=== PATIENT | female | born 1970 | race Caucasian/White ===

== ENCOUNTER 2017-09-03 03:15 | Inpatient (IN) | payer OTHER ==
[2017-09-03] MEDS ORDERED: IPRATROPIUM BROM 0.5MG/2.5ML ONE (03:32)
[2017-09-03] MEDS ORDERED: ALBUTEROL 2.5 MG/3 ML NEB SOL ONE ×2 (03:32→04:17)
--- NOTE | 2017-09-03 04:15 | ER ---
Nurse's Notes [facility] Name: Fara Pérez Age: 47 yrs Sex: Female : 1970 Arrival Date: 09/03/2017 Time: 03:18 Bed 13 Private MD: Diagnosis: Asthma;Tobacco use;Tobacco abuse counseling;Hypokalemia;Essential (primary) hypertension;Elevated white blood cell count Presentation: 09/03 03:27 Presenting complaint: Patient states: she has hx of asthma and is having an bb exacerbation with difficulty breathing, wheezing, chest tightness, she used her inhaler and did a breathing treatment but it is not helping. Transition of care: patient was not received from another setting of care. Onset of symptoms was September 03, 2017. Risk Assessment: Do you want to hurt yourself or someone else? Patient reports no desire to harm self or others. Initial Sepsis Screen: Does the patient meet any 2 criteria? No. Patient's initial sepsis screen is negative. Does the patient have a suspected source of infection? No. Patient's initial sepsis screen is negative. Care prior to arrival: Medication(s) given: Albuterol Neb and inhaler. 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 - Social history:: Smoking status: Patient uses tobacco products, smokes one pack cigarettes per day. Patient uses alcohol, only on a social basis. Patient/guardian denies using street drugs. - Ebola Screening: : No symptoms or risks identified at this time. - Family history:: not pertinent. Screenin:54 Abuse screen: Denies threats or abuse. Denies injuries from another. Nutritional ao screening: No deficits noted. Tuberculosis screening: No symptoms or risk factors identified. Fall Risk None identified. Assessment: 03:52 General: Appears in no apparent distress. uncomfortable, Behavior is calm, cooperative, ao appropriate for age. Pain: Denies pain. Neuro: Level of Consciousness is awake, alert, obeys commands, Oriented to person, place, time, situation, Appropriate for age Moves all extremities. Speech is normal, Facial symmetry appears normal. Cardiovascular: Capillary refill < 3 seconds Patient's skin is warm and dry. Respiratory: Airway is patent Trachea midline Respiratory effort is labored, Respiratory pattern is symmetrical. Respiratory: Reports shortness of breath cough that is non-productive. GI: Abdomen is non-distended. : No signs and/or symptoms were reported regarding the genitourinary system. EENT: No signs and/or symptoms were reported regarding the EENT system. Derm: Skin temperature is warm. Musculoskeletal: No signs and/or symptoms reported regarding the musculoskeletal system. 04:50 Reassessment: Patient appears in no apparent distress at this time. Patient and/or ao family updated on plan of care and expected duration. Pain level reassessed. Patient is alert, oriented x 3, equal unlabored respirations, skin warm/dry/pink. 05:50 Reassessment: Patient appears in no apparent distress at this time. Patient and/or ao family updated on plan of care and expected duration. Pain level reassessed. Patient is alert, oriented x 3, equal unlabored respirations, skin warm/dry/pink. 06:30 Reassessment: Patient admitted to [facility]. Report called to ELIS kahn. ao 06:40 Reassessment: Patient was taken to her room while Dr Bates put more orders to ao medicate patient. Dr Bates was notified and stated that orders had been put into [facility] as well. 06:52 Reassessment: Called [facility] notified that Dr Bates wants this patient to get Lovenox ao and Aspirin ASP. Vital Signs: 03:31 BP 158 / 90; Pulse 97; Resp 20 S; Pulse Ox 95% on R/A; Weight 86.18 kg (R); Height 4 bb ft. 10 in. (147.32 cm) (R); Pain 0/10; 04:11 Temp 98.7(O); bb 04:50 BP 146 / 89; Pulse 110; Resp 18; Pulse Ox 99% on R/A; Pain 0/10; ao 03:31 Body Mass Index 39.71 (86.18 kg, 147.32 cm) bb ED Course: 03:18 Patient arrived in ED. es 03:29 Triage completed. bb 03:30 Inserted saline lock: 22 gauge in right antecubital area, using aseptic technique. bs1 Blood collected. 03:31 Arm band placed on Patient placed in an exam room, on a stretcher, on pulse oximetry. bb Family accompanied patient. 03:32 Aayush Shane, RN is Primary Nurse. ao 03:55 No provider procedures requiring assistance completed. ao 03:56 Patient has correct armband on for positive identification. Pulse ox on. NIBP on. ao 03:59 Michael Bates MD is Attending Physician. thompson 04:14 Roland Gonzalez MD is Hospitalizing Provider. thompson 04:28 X-ray completed. Portable x-ray completed in exam room. Patient tolerated procedure la2 well. 04:29 XRAY Chest (1 view) In Process Unspecified. EDMS 05:05 Inserted saline lock: 24 gauge in left hand, using aseptic technique. ao 06:29 Patient admitted, IV remains in place. ao Administered Medications: 03:32 Drug: Albuterol - atroVENT (3:1) (2.5 mg - 0.5 mg) 3 ml Route: Nebulizer; bs1 06:28 Follow up: Response: No adverse reaction ao 04:43 Drug: Decadron - Dexamethasone 10 mg Route: IVP; Site: left antecubital; ao 06:27 Follow up: Response: No adverse reaction ao 04:44 Drug: SOLU-Medrol 125 mg Route: IVP; Site: right antecubital; ao 06:26 Follow up: Response: No adverse reaction ao 04:44 Drug: Albuterol 5 mg Route: Inhalation; ao 06:26 Follow up: Response: No adverse reaction ao 04:44 Drug: NS 0.9% 1000 ml Route: IV; Rate: 1 bolus; Site: left antecubital; ao 06:26 Follow up: IV Status: Completed infusion; IV Intake: 1000ml ao 05:04 Drug: Rocephin - (cefTRIAXone) 1 grams Route: IVPB; Infused Over: 30 mins; Site: right ao antecubital; 06:26 Follow up: IV Status: Completed infusion; IV Intake: 10ml ao 05:04 Drug: Zithromax 500 mg Route: IVPB; Infused Over: 1 hrs; Site: left antecubital; ao 06:26 Follow up: IV Status: Infusion continued upon admission ao 06:10 Drug: NS 0.9% 1000 ml Route: IV; Rate: 125 ml/hr; Site: right antecubital; ao 06:27 Follow up: IV Status: Infusion continued upon admission ao 06:34 Not Given (PT admitted. Dr Bates stated that it would be put in [facility]): Potassium ao Effervescent Tablet 25 mEq PO once; dissolve in 4 ounces of water or juice 06:38 Not Given (Pt admitted. Order put in [facility] by Dr Bates): Lopressor (metoprolol ao TARTRATE) 50 mg PO once 06:39 Not Given (Pt admitted . Order tranfered to [facility] by Dr Solis): Lovenox 1 mg/kg ao Sub-Q once 06:40 Not Given (Pt admitted. Ordered put in [facility] by Dr Bates): Aspirin Chewable ao Tablet 324 mg PO once; 81 mg tablets x 4 Intake: 06:26 IV: 10ml; Total: 10ml. ao 06:26 IV: 1000ml; Total: 1010ml. ao Outcome: 04:15 Decision to Hospitalize by Provider. thompson 06:28 Admitted to Tele accompanied by tech, via wheelchair, room 415, with chart, Report ao called to ELIS Kahn 06:28 Condition: stable 06:28 Instructed on the need for admit. 06:31 Patient left the ED. ao Signatures: Dispatcher [employer] Michael Torres MD MD cha Salyer, Edna es Ballard, Brenda RN RN Aayush Zhong RN RN Yoanna Sequeira Brittany, RN RN bs1
--- NOTE | 2017-09-03 04:16 | EDPHYS ---
Physician Documentation [facility] Name: Fara Pérez Age: 47 yrs Sex: Female : 1970 Arrival Date: 09/03/2017 Time: 03:18 Bed 13 Private MD: ED Physician Michael Bates HPI: 09/03 04:11 This 47 yrs old Female presents to ER via Ambulatory with complaints of thompson Asthma Exacerbation. 04:11 The patient presents to the emergency department with wheezing, Current therapy:. thompson Onset: The symptoms/episode began/occurred 2 day(s) ago. Modifying factors: The symptoms are alleviated by nothing, the symptoms are aggravated by exertion. Associated signs and symptoms: Pertinent positives: chest pain, nausea. Severity of symptoms: At their worst the symptoms were mild in the emergency department the symptoms are unchanged. The patient has experienced similar episodes in the past, multiple times. 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 - Social history:: Smoking status: Patient uses tobacco products, smokes one pack cigarettes per day. Patient uses alcohol, only on a social basis. Patient/guardian denies using street drugs. - Ebola Screening: : No symptoms or risks identified at this time. - Family history:: not pertinent. ROS: 04:11 Constitutional: Negative for fever, chills, and weight loss, Eyes: Negative for injury, thompson pain, redness, and discharge, ENT: Negative for injury, pain, and discharge, Neck: Negative for injury, pain, and swelling, Cardiovascular: Negative for chest pain, palpitations, and edema, Abdomen/GI: Negative for abdominal pain, nausea, vomiting, diarrhea, and constipation, Back: Negative for injury and pain, : Negative for injury, bleeding, discharge, and swelling, MS/Extremity: Negative for injury and deformity, Skin: Negative for injury, rash, and discoloration, Neuro: Negative for headache, weakness, numbness, tingling, and seizure, Psych: Negative for depression, anxiety, suicide ideation, homicidal ideation, and hallucinations, Allergy/Immunology: Negative for hives, rash, and allergies, Endocrine: Negative for neck swelling, polydipsia, polyuria, polyphagia, and marked weight changes, Hematologic/Lymphatic: Negative for swollen nodes, abnormal bleeding, and unusual bruising. 04:11 Respiratory: Positive for cough, shortness of breath, wheezing, inspiratory, expiratory. Exam: 04:11 Constitutional: This is a well developed, well nourished patient who is awake, alert, thompson and in no acute distress. Head/Face: Normocephalic, atraumatic. Eyes: Pupils equal round and reactive to light, extra-ocular motions intact. Lids and lashes normal. Conjunctiva and sclera are non-icteric and not injected. Cornea within normal limits. Periorbital areas with no swelling, redness, or edema. ENT: Nares patent. No nasal discharge, no septal abnormalities noted. Tympanic membranes are normal and external auditory canals are clear. Oropharynx with no redness, swelling, or masses, exudates, or evidence of obstruction, uvula midline. Mucous membranes moist. Neck: Trachea midline, no thyromegaly or masses palpated, and no cervical lymphadenopathy. Supple, full range of motion without nuchal rigidity, or vertebral point tenderness. No Meningismus. Chest/axilla: Normal chest wall appearance and motion. Nontender with no deformity. No lesions are appreciated. Cardiovascular: Regular rate and rhythm with a normal S1 and S2. No gallops, murmurs, or rubs. Normal PMI, no JVD. No pulse deficits. Abdomen/GI: Soft, non-tender, with normal bowel sounds. No distension or tympany. No guarding or rebound. No evidence of tenderness throughout. Back: No spinal tenderness. No costovertebral tenderness. Full range of motion. Female : Normal external genitalia. Skin: Warm, dry with normal turgor. Normal color with no rashes, no lesions, and no evidence of cellulitis. MS/ Extremity: Pulses equal, no cyanosis. Neurovascular intact. Full, normal range of motion. Neuro: Awake and alert, GCS 15, oriented to person, place, time, and situation. Cranial nerves II-XII grossly intact. Motor strength 5/5 in all extremities. Sensory grossly intact. Cerebellar exam normal. Normal gait. Psych: Awake, alert, with orientation to person, place and time. Behavior, mood, and affect are within normal limits. 04:11 Respiratory: mild respiratory distress is noted, Respirations: normal, Breath sounds: Respiratory rate: 20 Vital Signs: 03:31 BP 158 / 90; Pulse 97; Resp 20 S; Pulse Ox 95% on R/A; Weight 86.18 kg (R); Height 4 bb ft. 10 in. (147.32 cm) (R); Pain 0/10; 04:11 Temp 98.7(O); bb 04:50 BP 146 / 89; Pulse 110; Resp 18; Pulse Ox 99% on R/A; Pain 0/10; ao 03:31 Body Mass Index 39.71 (86.18 kg, 147.32 cm) bb MDM: 03:59 Patient medically screened. [facility] 04:14 Data reviewed: vital signs, nurses notes, lab test result(s), EKG, radiologic studies, thompson plain films. 09/03 04:11 Order name: Basic Metabolic Panel [facility] 09/03 04:11 Order name: BNP; Complete Time: 06:26 [facility] 09/03 04:11 Order name: CBC with Diff; Complete Time: 06:26 [facility] 09/03 04:11 Order name: Ckmb; Complete Time: 06:26 [facility] 09/03 04:11 Order name: CPK; Complete Time: 06:26 [facility] 09/03 04:11 Order name: LFT's; Complete Time: 06:26 [facility] 09/03 04:11 Order name: Magnesium; Complete Time: 06:26 [facility] 09/03 04:11 Order name: PT-INR; Complete Time: 06:26 [facility] 09/03 04:11 Order name: Ptt, Activated; Complete Time: 06:26 [facility] 09/03 04:11 Order name: Troponin (emerg Dept Use Only); Complete Time: 06:26 [facility] 09/03 04:11 Order name: XRAY Chest (1 view) [facility] 09/03 04:11 Order name: Blood Culture Adult (2) [facility] 09/03 04:11 Order name: Basic Metabolic Panel; Complete Time: 06:26 EDMS 09/03 06:30 Order name: Urine Dipstick--Ancillary (enter results) 09/03 04:11 Order name: Urine Test (obtain specimen); Complete Time: 06:27 [facility] 09/03 04:11 Order name: EKG; Complete Time: 04:12 [facility] 09/03 04:11 Order name: Cardiac monitoring; Complete Time: 05:04 [facility] 09/03 06:28 Order name: Echo w/ Doppler [facility] 09/03 04:11 Order name: EKG - Nurse/Tech; Complete Time: 05:04 [facility] 09/03 04:11 Order name: IV Saline Lock; Complete Time: 05:04 [facility] 09/03 04:11 Order name: Labs collected and sent; Complete Time: 05:04 [facility] 09/03 04:11 Order name: O2 Per Protocol; Complete Time: 05:04 [facility] 09/03 04:11 Order name: O2 Sat Monitoring; Complete Time: 05:04 [facility] 09/03 04:11 Order name: Urine Dipstick-Ancillary (obtain specimen); Complete Time: 06:27 [facility] Administered Medications: 03:32 Drug: Albuterol - atroVENT (3:1) (2.5 mg - 0.5 mg) 3 ml Route: Nebulizer; bs1 06:28 Follow up: Response: No adverse reaction ao 04:43 Drug: Decadron - Dexamethasone 10 mg Route: IVP; Site: left antecubital; ao 06:27 Follow up: Response: No adverse reaction ao 04:44 Drug: SOLU-Medrol 125 mg Route: IVP; Site: right antecubital; ao 06:26 Follow up: Response: No adverse reaction ao 04:44 Drug: Albuterol 5 mg Route: Inhalation; ao 06:26 Follow up: Response: No adverse reaction ao 04:44 Drug: NS 0.9% 1000 ml Route: IV; Rate: 1 bolus; Site: left antecubital; ao 06:26 Follow up: IV Status: Completed infusion; IV Intake: 1000ml ao 05:04 Drug: Rocephin - (cefTRIAXone) 1 grams Route: IVPB; Infused Over: 30 mins; Site: right ao antecubital; 06:26 Follow up: IV Status: Completed infusion; IV Intake: 10ml ao 05:04 Drug: Zithromax 500 mg Route: IVPB; Infused Over: 1 hrs; Site: left antecubital; ao 06:26 Follow up: IV Status: Infusion continued upon admission ao 06:10 Drug: NS 0.9% 1000 ml Route: IV; Rate: 125 ml/hr; Site: right antecubital; ao 06:27 Follow up: IV Status: Infusion continued upon admission ao 06:34 Not Given (PT admitted. Dr Bates stated that it would be put in [facility]): Potassium ao Effervescent Tablet 25 mEq PO once; dissolve in 4 ounces of water or juice 06:38 Not Given (Pt admitted. Order put in [facility] by Dr Bates): Lopressor (metoprolol ao TARTRATE) 50 mg PO once 06:39 Not Given (Pt admitted . Order tranfered to [facility] by Dr Solis): Lovenox 1 mg/kg ao Sub-Q once 06:40 Not Given (Pt admitted. Ordered put in [facility] by Dr Bates): Aspirin Chewable ao Tablet 324 mg PO once; 81 mg tablets x 4 Disposition: 09/03/17 04:15 Hospitalization ordered by Roland Goznalez for Observation. Preliminary diagnosis are Asthma, Tobacco use, Tobacco abuse counseling, Hypokalemia, Essential (primary) hypertension, Elevated white blood cell count. - Bed requested for Telemetry/MedSurg (observation). - Status is Observation. ao - Condition is Fair. - Problem is new. - Symptoms have improved. UTI on Admission? No Signatures: Dispatcher [employer] EDMS Jacquelyn Vernon RN RN kl Anderson, Corey, MD MD cha Ballard, Brenda, RN RN bb Ortiz, Alex, RN RN ao Salazar, Brittany, RN RN bs1 Corrections: (The following items were deleted from the chart) 05:46 04:15 Hospitalization Ordered by Roland Gonzalez MD for Observation. Preliminary aminta diagnosis is Asthma; Tobacco use; Tobacco abuse counseling. Bed requested for Telemetry/MedSurg (observation). Status is Observation. Condition is Fair. Problem is new. Symptoms have improved. UTI on Admission? No. thompson 06:30 05:46 09/03/2017 04:15 Hospitalization Ordered by Roland Gonzalez MD for Observation. thompson Preliminary diagnosis is Asthma; Tobacco use; Tobacco abuse counseling. Bed requested for Telemetry/MedSurg (observation). Status is Observation. Condition is Fair. Problem is new. Symptoms have improved. UTI on Admission? No. kl 06:31 06:30 09/03/2017 04:15 Hospitalization Ordered by Roland Gonzalez MD for Observation. ao Preliminary diagnosis is Asthma; Tobacco use; Tobacco abuse counseling; Hypokalemia; Essential (primary) hypertension; Elevated white blood cell count. Bed requested for Telemetry/MedSurg (observation). Status is Observation. Condition is Fair. Problem is new. Symptoms have improved. UTI on Admission? No. thompson
[2017-09-03] MEDS ORDERED: CEFTRIAXONE/SWI 1gm 1 GM/10 ML SYR ONE (04:17)
[2017-09-03] MEDS ORDERED: METHYLPREDNISOLONE 125 MG INJ ONE (04:17)
[2017-09-03] MEDS ORDERED: NA CHLORIDE 0.9% 1,000 ML ONE ×2 (04:17→06:12)
[2017-09-03] MEDS ORDERED: DEXAMETHASONE 10 MG/ML VIAL ONE (04:17)
[2017-09-03] MEDS ORDERED: AZITHROMYCIN 500 MG/250 ML BAG ONE (04:18)
[2017-09-03 04:59] LABS: Absolute Lymphocytes (CBC) 1.7 K/uL (0.7-4.9); Absolute Monocytes 0.9 K/uL (0.1-1.3); Absolute Neutrophil 14.4 K/uL (1.8-8.0); Eosinophils % 0.7 % (0-4.4); Hematocrit 39.3 % (36.0-45.0); Lymphocytes % 9.6 % (15.3-44.8); MCH 30.8 pg (27.0-35.0); MPV 9.1 fL (7.6-11.3); RBC Red Blood Cell Count 4.42 M/uL (3.86-4.86)
[2017-09-03 05:15] LABS: Protime INR 0.95
[2017-09-03 05:18] LABS: Bicarbonate 22 mEq/L (21-31); Glucose Level 156 mg/dL (65-120); Potassium 3.3 mEq/L (3.6-5.0); Sodium Level 136 mEq/L (135-145)
[2017-09-03 05:24] LABS: ALT/SGPT 24 IU/L (10-60); AST/SGOT 21 IU/L (10-42); Albumin 4.3 g/dL (3.2-5.5); Alkaline Phosphatase 65 IU/L (42-121); BUN Blood Urea Nitrogen 19 mg/dL (6-20); Bilirubin Direct < 0.1 mg/dL (0-0.2); Bilirubin Total 0.3 mg/dL (0.3-1.2); Creatine Phosphokinase 131 IU/L (22-269); Magnesium 1.8 mg/dL (1.8-2.5); Protein, Total 7.7 g/dL (6.0-8.3)
[2017-09-03 05:27] LABS: CKMB Creatine Kinase MB 4.4 ng/ml (0.3-4.0)
--- NOTE | 2017-09-03 05:51 | P.HP ---
Certification for Inpatient Patient admitted to: Observation With expected LOS: <2 Midnights Practitioner: I am a practitioner with admitting privileges, knowledge of patient current condition, hospital course, and medical plan of care. Services: Services provided to patient in accordance with Admission requirements found in Title 42 Section 412.3 of the Code of Federal Regulations Patient History Date of Service: 09/03/17 Reason for admission: ashtma exacerbation History of Present Illness: Ms Pérez is a 47 years old woman with history of asthma and hypothyroidism, who start about 2 days ago with progressive SOB associated with productive cough, with yellowish secretions. She denied fever but has had chills. She feels tight and not able to catch her air. Her inhaler was not helping at home. At arrival she was dyspneic. Temp 98.7, O2 sat 95% on RA. Lab work remarkable for leukocytosis 17.3K. CXR shows no obvious infiltrate, awaiting radiologist report. Allergies codeine [Codeine] Allergy (Verified 09/12/11 10:32) Rash Sulfa (Sulfonamide Antibiotics) [Sulfa(Sulfonamide Antibiotics)] Allergy ( Verified 09/12/11 10:32) Nausea/Vomiting hydrocodone [Hydrocodone] Adverse Reaction (Verified 09/12/11 10:32) hallucinate prochlorperazine edisylate [From Compazine] Adverse Reaction (Verified 09/12/11 10:32) muscles tighten prochlorperazine maleate [From Compazine] Adverse Reaction (Verified 09/12/11 10 :32) muscles tighten Hydrocodone-Acet Allergy (Uncoded 12/01/15 03:41) Unknown Home Medications: ALPRAZolam [Xanax*] 0.125 mg PO DAILY PRN 12/01/15 Albuterol Inhaler [Ventolin Inhaler*] 2 puff IH Q6H PRN 12/01/15 Famotidine [Pepcid*] 20 mg PO DAILY 12/01/15 Losartan/Hydrochlorothiazide [Losartan-Hctz 50-12.5 mg Tab] 1 tab PO DAILY 11/30 Tiotropium [Spiriva Handihaler*] 1 klarissa IH DAILY 12/01/15 Albuterol Sulfate [Albuterol Sulfate 0.083% Neb Soln] 2.5 mg IH Q4HP PRN #30 ml 12/02/15 Azithromycin Tab [Zithromax*] 500 mg PO DAILY #7 tab 12/02/15 Ipratropium Neb [Atrovent Neb] 0.5 mg IH Q4HP PRN #30 amp 12/02/15 Methylprednisolone [Medrol dosepack] 4 mg PO DIRECTED #1 harmony 12/02/15 - Past Medical/Surgical History Diabetic: No -: asthma -: hypothyroidism -: hernia repair -: hysterectomy -: cholecystectomy -: lumpectomy (brenda) - Family History Family History: Reviewed- Non-Contributory - Social History Smoking Status: Current every day smoker Counseled patient to stop smoking for: less than 10 minutes Smoking therapy provided: Yes Patient receptive to therapy: No Alcohol use: Yes CD- Drugs: No Caffeine use: Yes Place of Residence: Home Review of Systems 10-point ROS is otherwise unremarkable Physical Examination - Physical Exam General: Alert, Mild distress (due to SOB) HEENT: Atraumatic, PERRLA, Mucous membr. moist/pink, EOMI, Sclerae nonicteric Neck: Supple, 2+ carotid pulse no bruit, No LAD, Without JVD or thyroid abnormality Respiratory: Normal air movement, Expiratory wheezes (bilateral), Rhonchi/ gurgles (bilateral) Cardiovascular: Regular rate/rhythm, Normal S1 S2 Gastrointestinal: Normal bowel sounds, No tenderness Musculoskeletal: No tenderness Integumentary: No rashes Neurological: Normal speech, Normal strength at 5/5 x4 extr, Normal tone, Normal affect Lymphatics: No axilla or inguinal lymphadenopathy Assessment and Plan - Problems (Diagnosis) (1) Acute bronchitis Current Visit: Yes Status: Acute Qualifiers: Bronchitis organism: unspecified organism Qualified Code(s): J20.9 - Acute bronchitis, unspecified (2) Asthma exacerbation Onset Date: 12/02/15 Current Visit: No Status: Acute Qualifiers: Asthma severity: mild Asthma persistence: intermittent Qualified Code(s) : J45.21 - Mild intermittent asthma with (acute) exacerbation - Plan The patient will be admitted to the hospital due to Asthma exacerbation, likely secondary to acute bonchitis. Will order empiric antibiotic treatment, IV steroids and scheduled breathing treatments. - Advance Directives Does patient have a Living Will: No Does patient have a Durable POA for Healthcare: No - Code Status/Comfort Care Code Status Assessed: Yes Code Status: Full Code
[2017-09-03] MEDS ORDERED: NA CHLORIDE 0.9% 1,000 ML IV SCH (06:43)
[2017-09-03] MEDS: METHYLPREDNISOLONE 40 MG INJ IV SCH ×3 (06:43→17:52)
[2017-09-03] MEDS ORDERED: ACETAMINOPHEN 500 MG TAB PO PRN (06:43)
[2017-09-03] MEDS ORDERED: ONDANSETRON 4 MG/2 ML VIAL IV PRN (06:43)
[2017-09-03 06:45] VITALS: BMI 39.6
[2017-09-03] MEDS ORDERED: ENOXAPARIN 100 MG/ML SYR SQ SCH (07:00)
[2017-09-03] MEDS: ENOXAPARIN 40 MG/0.4 ML SQ SCH (07:30)
[2017-09-03] MEDS: IPRATROPIUM BROM 0.5MG/2.5ML NEB SCH ×5 (07:32→23:37)
[2017-09-03] MEDS: ALBUTEROL 2.5 MG/3 ML NEB SOL NEB SCH ×5 (07:32→23:37)
[2017-09-03] MEDS: AZITHROMYCIN IV 500 MG in NA CHLORIDE 0.9% 250 ML IVPB SCH (07:54)
[2017-09-03] MEDS ORDERED: POTASSIUM 25 MEQ EFFERV TAB PO ONE (08:00)
[2017-09-03] MEDS: POTASSIUM 25 MEQ EFFERV TAB PO SCH ×2 (08:04→20:30)
[2017-09-03] MEDS: ASPIRIN 81 MG CHEWABLE TABLET PO SCH (08:04)
[2017-09-03] MEDS: FAMOTIDINE 20 MG/2 ML VIAL IV SCH ×2 (08:04→22:17)
[2017-09-03] MEDS ORDERED: MAGNESIUM SULFATE 1 gm IVPB 1 GM/100 ML BAG IV ONE (09:00)
[2017-09-03] MEDS ORDERED: CEFTRIAXONE 1 GM/NS 50 ML 1 GM/50 ML BAG IV SCH (09:00)
--- NOTE | 2017-09-03 09:10 | EKG ---
Test Date: 2017-09-03 Test Time: 05:00:47 Grinder Brake Lining: CHANTEL MEASUREMENT RESULTS: Intervals: Rate: 101 CO: 144 QRSD: 92 QT: 306 QTc: 396 Hydes: P: 53 CO: 144 QRS: 9 T: -16 INTERPRETIVE STATEMENTS: Sinus tachycardia Possible Left atrial enlargement Nonspecific ST and T wave abnormality Abnormal ECG Compared to ECG 11/30/2015 23:53:38 ST (T wave) deviation now present Sinus rhythm no longer present Electronically Signed On 09-03-17 09:09:55 CDT by Elgin Mcnulty
--- NOTE | 2017-09-03 11:31 | RAD REPORT ---
EXAM DESCRIPTION: RAD - Chest Single View - 09/03/2017 4:29 am CLINICAL HISTORY: COUGH Asthma exacerbation COMPARISON: Chest Single View dated 12/02/2015; Chest Single View dated 11/30/2015; CHEST SINGLE VIEW dated 12/04/2012; CHEST SINGLE VIEW dated 12/03/2012 FINDINGS: Portable technique limits examination quality. The lungs are grossly clear. The heart is normal in size. No displaced fractures. IMPRESSION: No acute intrathoracic process suspected.
[2017-09-03] MEDS: METOPROLOL TAR 25 MG TAB PO SCH (17:52)
[2017-09-03] MEDS: NICOTINE 21 MG/PAT TD SCH (20:30)
[2017-09-03] MEDS ORDERED: ALPRAZOLAM 0.25 MG TABLET PO PRN (22:32)
[2017-09-04] MEDS: METHYLPREDNISOLONE 40 MG INJ IV SCH ×4 (00:22→14:45)
[2017-09-04] MEDS: IPRATROPIUM BROM 0.5MG/2.5ML NEB SCH ×5 (03:24→19:14)
[2017-09-04] MEDS: ALBUTEROL 2.5 MG/3 ML NEB SOL NEB SCH ×5 (03:24→19:14)
[2017-09-04 04:31] LABS: Absolute Lymphocytes (CBC) 1.1 K/uL (0.7-4.9); Absolute Monocytes 0.5 K/uL (0.1-1.3); Absolute Neutrophil 18.2 K/uL (1.8-8.0); Basophils % 0.1 % (0-1.3); Hematocrit 39.1 % (36.0-45.0); Lymphocytes % 5.5 % (15.3-44.8); MCH 30.8 pg (27.0-35.0); MCV 90.2 fL (80-100); MPV 9.6 fL (7.6-11.3); Monocytes % 2.6 % (3.3-12.3); RBC Red Blood Cell Count 4.34 M/uL (3.86-4.86)
[2017-09-04 04:43] LABS: Magnesium 2.1 mg/dL (1.8-2.5); Potassium 3.6 mEq/L (3.6-5.0)
[2017-09-04 04:59] LABS: Blood Morphology Comment NOT SEEN (NOT SEEN); Platelet Estimate ADEQ; Platelets, Giant FEW; Urine White Blood Cell Casts OK
[2017-09-04] MEDS ORDERED: POTASSIUM 25 MEQ EFFERV TAB PO ONE (06:00)
[2017-09-04] MEDS: METOPROLOL TAR 25 MG TAB PO SCH ×2 (06:08→17:55)
[2017-09-04] MEDS: NICOTINE 21 MG/PAT TD SCH (08:40)
[2017-09-04] MEDS: ASPIRIN 81 MG CHEWABLE TABLET PO SCH (08:41)
[2017-09-04] MEDS: ENOXAPARIN 40 MG/0.4 ML SQ SCH (08:41)
[2017-09-04] MEDS: POTASSIUM 25 MEQ EFFERV TAB PO SCH ×2 (08:41→20:35)
[2017-09-04] MEDS: AZITHROMYCIN IV 500 MG in NA CHLORIDE 0.9% 250 ML IVPB SCH (08:41)
[2017-09-04] MEDS: CEFTRIAXONE/SWI 1gm 1 GM/10 ML SYR IVP SCH (08:41)
[2017-09-04] MEDS: FAMOTIDINE 20 MG/2 ML VIAL IV SCH ×2 (08:55→20:36)
[2017-09-04 13:13] LABS: Urine Appearance CLEAR; Urine Bilirubin NEGATIVE (NEG); Urine Blood NEGATIVE (NEG); Urine Color YELLOW; Urine Glucose NEGATIVE (NEG); Urine Protein NEGATIVE (NEG); Urine Specific Gravity <=1.005 (1.005-1.030); Urine Urobilinogen 0.2 mg/dL (0.2-1.0); Urine pH 5.5 (5.0-7.0)
[2017-09-04 16:25] LABS: Urine Bacteria <20 /HPF (<20); Urine Culture Reflex Order NOT NEEDED; Urine RBC <5 /HPF (NONE SEEN)
--- NOTE | 2017-09-04 16:48 | ECHO ---
HEIGHT: 4 ft 10 in WEIGHT: 190 lb 0 oz DATE OF STUDY: 09/04/[address]: Michael Bates MD 2-DIMENSIONAL: YES M.MODE: YES DOPPLER: YES COLOR FLOW: YES TDS: PORTABLE: DEFINITY: BUBBLE STUDY: DIAGNOSIS: DYSPNEA CARDIAC HISTORY: CATHERIZATION: NO SURGERY: NO PROSTHETIC VALVE: NO PACEMAKER: NO MEASUREMENTS (cm) DIASTOLIC (NORMALS) SYSTOLIC (NORMALS) IVSd 1.0 (0.6-1.2) LA Diam 2.8 (1.9-4.0) LVEF 68% LVIDd 3.3 (3.5-5.7) LVIDs 2.1 (2.0-3.5) %FS 37% LVPWd 1.2 (0.6-1.2) Ao Diam 2.4 (2.0-3.7) 2 DIMENSIONAL ASSESSMENT: RIGHT ATRIUM: NORMAL LEFT ATRIUM: NORMAL RIGHT VENTRICLE: NORMAL LEFT VENTRICLE: NORMAL TRICUSPID VALVE: NORMAL MITRAL VALVE: NORMAL PULMONIC VALVE: NORMAL AORTIC VALVE: NORMAL PERICARDIAL EFFUSION: NONE AORTIC ROOT: NORMAL LEFT VENTRICULAR WALL MOTION: NORMAL DOPPLER/COLOR FLOW: NORMAL COMMENTS: 2-DIMENSIONAL ECHOCARDIOGRAM WITH DOPPLER TECHNOLOGIST: TARSHA MOLINA
[2017-09-04] MEDS: BENZONATATE 100 MG CAP PO PRN (17:56)
--- NOTE | 2017-09-04 20:33 | RAD REPORT ---
EXAM DESCRIPTION: RAD - Sinus 3/+ Views - 09/04/2017 8:25 pm CLINICAL HISTORY: Sinus pain and pressure. Headache. COMPARISON: None FINDINGS: The paranasal sinuses and mastoids appear clear. The calvarium is intact. IMPRESSION: Negative study.
[2017-09-04] MEDS: TEMAZEPAM 15 MG CAP PO PRN (20:36)
[2017-09-04] MEDS: METHYLPREDNISOLONE 125 MG INJ IV SCH (20:37)
[2017-09-05] MEDS: ALBUTEROL 2.5 MG/3 ML NEB SOL NEB SCH ×4 (01:05→19:40)
[2017-09-05] MEDS: IPRATROPIUM BROM 0.5MG/2.5ML NEB SCH ×4 (01:05→19:40)
[2017-09-05 04:25] LABS: BUN Blood Urea Nitrogen 18 mg/dL (6-20); Bicarbonate 25 mEq/L (21-31); Glucose Level 130 mg/dL (65-120); Potassium 4.4 mEq/L (3.6-5.0); Sodium Level 138 mEq/L (135-145)
[2017-09-05] MEDS: METOPROLOL TAR 25 MG TAB PO SCH ×2 (05:21→16:50)
[2017-09-05] MEDS: BENZONATATE 100 MG CAP PO PRN ×2 (05:21→12:48)
[2017-09-05] MEDS: AZITHROMYCIN IV 500 MG in NA CHLORIDE 0.9% 250 ML IVPB SCH (10:12)
[2017-09-05] MEDS: CEFTRIAXONE/SWI 1gm 1 GM/10 ML SYR IVP SCH (10:25)
[2017-09-05] MEDS: FAMOTIDINE 20 MG/2 ML VIAL IV SCH (10:25)
[2017-09-05] MEDS: ASPIRIN 81 MG CHEWABLE TABLET PO SCH (10:38)
[2017-09-05] MEDS: ENOXAPARIN 40 MG/0.4 ML SQ SCH (10:38)
[2017-09-05] MEDS: POTASSIUM 25 MEQ EFFERV TAB PO SCH ×2 (10:39→21:58)
[2017-09-05] MEDS: NICOTINE 21 MG/PAT TD SCH (10:40)
[2017-09-05] MEDS: METHYLPREDNISOLONE 125 MG INJ IV SCH ×2 (10:42→21:59)
--- NOTE | 2017-09-05 11:40 | PN ---
Date of Progress Note: 09/04/2017 Subjective: The patient feels better than when she came in; however, she states she still has a coug h, shortness of breath with exertion, and some audible wheezing is confirmed on examination. Her eric roid dose will be altered on her last couple of admissions, which was a stronger dose over longer periods of time intervals. Tessalon Perles will be added. Continue on inhalation therapy wi th some question of possible cardiac involvement. Workup was done . If in fact the patien t continues to improve taken 3-4 days to get her back to baseline, she can be discharged i n the a.m. HR/MODL Voice ID: [id number] Report ID: [id number]
[2017-09-05] MEDS ORDERED: LORATADINE 10 MG TAB PO PRN (15:04)
[2017-09-05] MEDS: FLUTICASONE 50MCG NASAL SPRAY NAS SCH (16:48)
[2017-09-05] MEDS: FAMOTIDINE 20 MG TAB PO SCH (21:58)
[2017-09-05] MEDS: TEMAZEPAM 15 MG CAP PO PRN (21:58)
--- NOTE | 2017-09-05 23:48 | PN ---
Date of Progress Note: 09/05/2017 The patient continues to improve. She feels considerably better than yesterday, although she still h as exertional dyspnea and sinus x-rays were clear, complains of significant hoarseness and is noted w hen she speaks, also has some drainage. She was started on symptomatic treatment for this. Continue with the steroid doses overnight, and probably could be discharged in a.m. HR/MODL Voice ID: [id number] Report ID: [id number]
[2017-09-06] MEDS: ALBUTEROL 2.5 MG/3 ML NEB SOL NEB SCH ×4 (01:26→20:04)
[2017-09-06] MEDS: IPRATROPIUM BROM 0.5MG/2.5ML NEB SCH ×4 (01:26→20:04)
[2017-09-06] MEDS: METOPROLOL TAR 25 MG TAB PO SCH ×2 (05:45→17:28)
[2017-09-06] MEDS: CEFTRIAXONE/SWI 1gm 1 GM/10 ML SYR IVP SCH (09:00)
[2017-09-06] MEDS: AZITHROMYCIN IV 500 MG in NA CHLORIDE 0.9% 250 ML IVPB SCH (09:27)
[2017-09-06] MEDS: POTASSIUM 25 MEQ EFFERV TAB PO SCH ×2 (09:29→21:09)
[2017-09-06] MEDS: ASPIRIN 81 MG CHEWABLE TABLET PO SCH (09:29)
[2017-09-06] MEDS: NICOTINE 21 MG/PAT TD SCH (09:29)
[2017-09-06] MEDS: METHYLPREDNISOLONE 125 MG INJ IV SCH ×2 (09:30→21:10)
[2017-09-06] MEDS: ENOXAPARIN 40 MG/0.4 ML SQ SCH (09:30)
[2017-09-06] MEDS: FAMOTIDINE 20 MG TAB PO SCH ×2 (09:30→21:11)
[2017-09-06] MEDS: FLUTICASONE 50MCG NASAL SPRAY NAS SCH ×2 (09:31→21:09)
[2017-09-06] MEDS: BENZONATATE 100 MG CAP PO PRN ×2 (09:47→21:12)
--- NOTE | 2017-09-06 16:02 | RAD REPORT ---
EXAM DESCRIPTION: CT - Thorax W/ Con - 09/06/2017 3:51 pm CLINICAL HISTORY: Dyspnea, productive cough COMPARISON: None. TECHNIQUE: Dynamically enhanced 5 mm thick images of the chest were obtained during administration o f 100 mL non-ionic IV contrast. All CT scans are performed using dose optimization technique as appropriate and may include automated exposure control or mA/KV adjustment according to patient size. FINDINGS: No mass or infiltrate in the lung parenchyma. No pleural thickening or pleural effusion. N o pneumothorax. No chest wall mass or abnormal axillary lymphadenopathy. No endobronchial lesion or b ronchial wall thickening. Interstitial markings are normal range. No abnormal mediastinal or hilar mass or lymphadenopathy seen. Bilateral breast implants are in place. Limited upper abdomen imaging shows no gross abnormality. IMPRESSION: Negative contrast enhanced CT chest examination.
[2017-09-06] MEDS: TEMAZEPAM 15 MG CAP PO PRN (21:12)
[2017-09-06 22:07] VITALS: O2SAT 96
[2017-09-07] MEDS: IPRATROPIUM BROM 0.5MG/2.5ML NEB SCH ×3 (01:34→13:08)
[2017-09-07] MEDS: ALBUTEROL 2.5 MG/3 ML NEB SOL NEB SCH ×3 (01:34→13:08)
[2017-09-07 04:42] LABS: Absolute Lymphocytes (CBC) 2.3 K/uL (0.7-4.9); Absolute Monocytes 0.3 K/uL (0.1-1.3); Absolute Neutrophil 16.4 K/uL (1.8-8.0); Basophils % 0.7 % (0-1.3); Hematocrit 41.5 % (36.0-45.0); Lymphocytes % 12.1 % (15.3-44.8); MCH 30.6 pg (27.0-35.0); MCV 91.5 fL (80-100); MPV 9.3 fL (7.6-11.3); Monocytes % 1.8 % (3.3-12.3); RBC Red Blood Cell Count 4.53 M/uL (3.86-4.86)
[2017-09-07 04:49] LABS: Potassium 4.6 mmol/L (3.5-5.1)
[2017-09-07] MEDS: METOPROLOL TAR 25 MG TAB PO SCH (05:41)
[2017-09-07] MEDS: BENZONATATE 100 MG CAP PO PRN (05:42)
[2017-09-07] MEDS: POTASSIUM 25 MEQ EFFERV TAB PO SCH (09:00)
[2017-09-07] MEDS: FLUTICASONE 50MCG NASAL SPRAY NAS SCH (09:28)
[2017-09-07] MEDS: FAMOTIDINE 20 MG TAB PO SCH (09:31)
[2017-09-07] MEDS: METHYLPREDNISOLONE 125 MG INJ IV SCH (09:31)
[2017-09-07] MEDS: CEFTRIAXONE/SWI 1gm 1 GM/10 ML SYR IVP SCH (09:31)
[2017-09-07] MEDS: NICOTINE 21 MG/PAT TD SCH (09:31)
[2017-09-07] MEDS: AZITHROMYCIN IV 500 MG in NA CHLORIDE 0.9% 250 ML IVPB SCH (09:32)
[2017-09-07] MEDS: ENOXAPARIN 40 MG/0.4 ML SQ SCH (09:32)
[2017-09-07] MEDS: ASPIRIN 81 MG CHEWABLE TABLET PO SCH (09:32)
--- NOTE | 2017-09-07 12:34 | PN ---
The patient states she is now coughing up very thick slightly discolored sputum and this was sent for culture and Gram stain. Does feel better, however, laryngitis have somewhat improved. Sinus scenar io is still present. X-rays were negative. We will do a CT scan of her lung, suspect significant as thmatic bronchitis, possibly due to an atypical bacteria, obviously aggravated by smoking. We will c onsult cardiovascular surgical tech as well. Possibly could be discharged in a.m. HR/MODL Voice ID: [id number] Report ID: [id number]
--- NOTE | 2017-09-07 12:59 | P.CNS ---
Date of Consult: 09/07/17 Reason for Consult: Asthma exacerbation Chief Complaint: ashtma exacerbation History of Present Illness: Patient is 47 years of age with a history of mild intermittent asthma he has had a getting worse on had a feeling tired was been have the symptoms of upper respiratory tract infection the was seen at the urgent care this had a becoming progressively worse apparently was organizing a friend's waiting again at condition deteriorated it is breathing got worse ended up here in the emergency room claims to be 100% better patient does not use any prophylactic steroid inhalers she has classic symptoms of asthma triggered up by barbecue smoke perfumes denies any nocturnal symptoms patient is also an active smoker Allergies codeine [Codeine] Allergy (Verified 09/12/11 10:32) Rash Sulfa (Sulfonamide Antibiotics) [Sulfa(Sulfonamide Antibiotics)] Allergy ( Verified 09/12/11 10:32) Nausea/Vomiting hydrocodone [Hydrocodone] Adverse Reaction (Verified 09/12/11 10:32) hallucinate prochlorperazine edisylate [From Compazine] Adverse Reaction (Verified 09/12/11 10:32) muscles tighten prochlorperazine maleate [From Compazine] Adverse Reaction (Verified 09/12/11 10 :32) muscles tighten Hydrocodone-Rupert Allergy (Uncoded 09/03/17 06:35) Unknown Hydrocodone-Acet Allergy (Uncoded 12/01/15 03:41) Unknown Home Medications: Albuterol Sulfate [Proair Respiclick] 90 mcg IH Q4HP PRN 09/03/17 Alprazolam [Xanax] 0.25 mg PO BEDTIME PRN 09/03/17 Losartan Potassium 50 mg PO DAILY 09/03/17 - Past Medical/Surgical History Diabetic: No -: asthma -: hypertension -: hernia repair -: hysterectomy(left) -: cholecystectomy -: lumpectomy (brenda) - Family History Mother Medical History: Cancer Notes: Breast CA x2 - Social History Smoking Status: Current every day smoker Alcohol use: Yes CD- Drugs: No Caffeine use: Yes Place of Residence: Home Review of Systems 10-point ROS is otherwise unremarkable Physical Examination Temp Pulse Resp BP Pulse Ox 97.8 F 85 17 145/81 H 95 09/07/17 08:00 09/07/17 08:00 09/07/17 08:00 09/07/17 08:00 09/07/17 08:00 General: Alert, Oriented x3 HEENT: Atraumatic Neck: Supple Respiratory: Clear to auscultation bilaterally Cardiovascular: No edema, Regular rate/rhythm Gastrointestinal: Normal bowel sounds, Soft and benign Musculoskeletal: No clubbing, No swelling - Problems (1) Asthma exacerbation Onset Date: 12/02/15 Current Visit: No Status: Acute Plan: Patient is 47 years of age with a history of asthma admitted with an exacerbation she is currently doing much better patient had been console not to smoke he can be discharged home on Symbicort I have advised her to currently use Symbicort on a daily basis for at least 2 weeks monitor peak flows any use ProAir on a p.r.n. basis follow-up with me in 2-4 weeks patient's chemistries are unremarkable chest x-ray clear patient's vital signs is satisfactory she is 96% on room air and be discharged home Qualifiers: Asthma severity: mild Asthma persistence: intermittent Qualified Code(s) : J45.21 - Mild intermittent asthma with (acute) exacerbation
[2017-09-07 16:47] VITALS: BP 147/92; TEMP 97.5
--- NOTE | 2017-10-16 04:42 | DS ---
Date of Discharge: 09/07/2017 Hospital Course: The patient was admitted to the hospital on 09/05 after presenting to the emergency room with some symptoms related to an acute asthmatic attack. The patient has had a long history of asthma, usually controllable on outpatient basis. On occasion, she has been admitted for IV steroid s. Did not respond well in the ER, and she was therefore admitted for IV steroids, and actually took longer than her normal state to get her to loosen up and produce some purulent sputum. Her steroid dose once she became less symptomatic was gradually decreased. Her vital signs remained stable other than respiratory rate throughout her hospital stay, and possibility of sinus being an etiology was a lso considered, this was x-rayed, and was negative. She also had a CT scan of her lung as she contin ued to have exertional dyspnea despite lessening of her symptoms. This too showed no underlying path ology. Eventually, her asthma symptoms cleared so that she could be discharged to continue on her in halers and antibiotics at home. She was discharged in good condition on 09/07. Follow up in a week. Final Diagnoses: Acute exacerbation of asthma; hypertension, controlled. HR/MODL Voice ID: [id number] Report ID: [id number]
== END 2017-09-07 18:17 | disposition home or self-care (01) | DRG 203 ==
LOC: ER 03:15 → ERHOLD 04:18 → 4TH 06:11 → OBSVTOIN 09-05 08:28
PROVIDERS: ADMIT Internal Medicine; ATTEND Family Medicine
DX: J45.21 Mild intermittent asthma with (acute) exacerbation (principal); J20.9 Acute bronchitis, unspecified; F17.210 Nicotine dependence, cigarettes, uncomplicated; E87.6 Hypokalemia; E03.9 Hypothyroidism, unspecified; Z88.5 Allergy status to narcotic agent; Z88.2 Allergy status to sulfonamides; Z88.8 Allergy status to other drugs, medicaments and biological substances; I10 Essential (primary) hypertension
CPT/HCPCS: 36415; 70220; 71045; 71260; 80048; 80076; 81001; 82550; 82553; 83735; 83880; 84132; 84484; 85025; 85610; 85730; 87040; 87070; 87205; 93005; 93306; 94640; 99285; G0378; J0456; J0696; J1100; J1650; J2920; J2930; J3475; J7030; Q9967

== ENCOUNTER 2024-12-20 23:27 | Emergency (ER) | payer OTHER ==
--- NOTE | 2024-12-21 01:50 | RAD REPORT ---
CT HEAD: Clinical Indication: Bed Name: 16; TRAUMA Comparison: None TECHNIQUE: CT images were obtained from the foramen magnum to the vertex without the use of intraveno us contrast on a multidetector CT. Coronal and sagittal reformats were performed and provided as separate series. All CT scans at this location are performed using dose optimization techniques as appropriate to perf orm the study. Radiation dose reduction technique was utilized including one or more of the following: Automated exp osure control, adjustment of the mA and/or kV according to patient size and use of iterative reconstruction technique. CT Radiation Dose DLP 825.4 mGy-cm FINDINGS: BRAIN PARENCHYMA: There are normal gill-white interfaces, sulci and gyri. There are no focal mass les ions on this noncontrast head CT. There is no mass effect, midline shift or edema. There are no intra-axial or extra-axial fluid collections, intraventricular or intraparenchymal hemorrhage. The pi pita, sellar, brainstem, cerebellum and skull base regions appear unremarkable. VENTRICLES: The lateral ventricles, third and fourth ventricles appear unremarkable. The basilar cist erns are normal. ORBITS, MASTOIDS AND PARANASAL SINUSES: The visualized orbits and paranasal sinuses are unremarkable. The mastoid air cells are clear. Small amount of mucus is noted within the sphenoid sinuses. SKULL: There are no acute osseous abnormalities. Moderate right parieto-occipital scalp hematoma is noted. No gas densities are noted in the soft tiss ues. No radiopaque foreign body is noted in the soft tissues. If there is further concern for intracranial pathology or acute stroke, MRI of the brain may be perfo rmed for complete assessment. IMPRESSION: 1. No acute intracranial abnormality is noted. 2. Moderate right parieto-occipital scalp hematoma. No gas densities or radiopaque foreign body noted in the soft tissues. CT CERVICAL SPINE: Clinical Indication: Bed Name: 16; TRAUMA Comparison: None Technique: Multi-detector CT imaging of the cervical spine is performed. Coronal and sagittal reconst ructions were performed and provided as separate series. All CT scans at this location are performed using dose optimization techniques as appropriate to perf orm the study. Radiation dose reduction technique was utilized including one or more of the following: Automated exp osure control, adjustment of the mA and/or kV according to patient size and use of iterative reconstruction technique. CT Radiation Dose DLP 185.3 mGy-cm FINDINGS: ALIGNMENT AND GENERAL ASSESSMENT: There is normal alignment of the cervical spine. There are no fract ures or subluxations. The craniocervical junction is normal. The atlanto-dental alignment appears unremarkable. The posterior elements and spinous processes are unremarkable. The facet joint, spinola minar and spinous process alignment are normal. DISK SPACES AND SOFT TISSUES: The prevertebral soft tissues are normal. C2-C3 to C7-T1 disc space levels show no definite disc pr otrusions on CT. There is no central or foraminal stenosis. MRI is the gold standard to assess for disk disease. VISUALIZED LUNG APICES: Unremarkable. CT myelogram or MRI of the cervical spine may be performed, if there is further concern. IMPRESSION: No acute fractures or subluxations of the cervical spine. Electronically signed by: Luciano Kathleen MD 12/21/2024 01:42 AM CDT RP Due to temporary technical issues with the PACS/[employer] reporting system, reports are being aylin d by the in-house radiologist without review as a courtesy to ensure prompt reporting the interpreting radiologist is fully responsible for the content of the report. Transcribed Date/Time: 12/21/2024 1:50 AM
--- NOTE | 2024-12-21 01:51 | ER ---
Nurse's Notes [facility] Name: Fara Lott Age: 54 yrs Sex: Female : 1970 Arrival Date: 12/20/2024 Time: 23:27 Bed 16 Private MD: Diagnosis: Unspecified injury of head, initial encounter Presentation: 12/20 23:44 Chief complaint: Patient states: had some drinks today, fell down and hit the back of ha1 head. bump on the back of head. 23:44 Coronavirus screen: Client denies travel out of the [place] in the last 14 days. Ebola ha1 Screen: No symptoms or risks identified at this time. Initial Sepsis Screen: Does the patient meet any 2 criteria? No. Patient's initial sepsis screen is negative. Does the patient have a suspected source of infection? No. Patient's initial sepsis screen is negative. Risk Assessment: Do you want to hurt yourself or someone else? Patient reports no desire to harm self or others. Onset of symptoms was December 20, 2024. 23:44 Method Of Arrival: Ambulatory ha1 23:44 Acuity: VIK 3 ha1 12/21 00:30 Mechanism of Injury: Fall from standing position. Trauma event details: Injury occurred ss12 in the [facility]. 01:26 Care prior to arrival: None. 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 tb4 Trauma Activation: Physician: ED Physician; Name: ; Notified At: ; Arrived At: Physician: General Surgeon; Name: ; Notified At: ; Arrived At: Physician: Radiology; Name: ; Notified At: ; Arrived At: Physician: Respiratory; Name: ; Notified At: ; Arrived At: Physician: Lab; Name: ; Notified At: ; Arrived At: 00:30 pt stable no abvious distress noted 12 Historical: - Allergies: 12/20 23:48 Codeine; ha1 23:48 Compazine; ha1 23:48 Hydrocodone-Acetaminophen; ha1 23:48 Sulfa (Sulfonamide Antibiotics); ha1 - PMHx: 23:48 Asthma; Hypertension; ha1 - Immunization history:: Adult Immunizations up to date. - Infectious Disease History:: CDIFF, . - Immunization history: Last tetanus immunization: unknown. - Social history:: Smoking status: Patient reports the use of cigarette tobacco products, smokes one-half pack cigarettes per day. Screenin/04 01:23 [facility] ED Fall Risk Assessment (Adult) History of falling in the last 3 months, ss12 including since admission Yes- single mechanical fall (1 pt) Confusion or Disorientation No (0 pts) Intoxicated or Sedated Yes (3 pts) Impaired Gait No (0 pts) Mobility Assist Device Used No (0 pt) Altered Elimination No (0 pt) Score/Fall Risk Level 3 or more points = High Risk Oriented to surroundings, Maintained a safe environment, Educated pt \T\ family on fall prevention, incl call for assistance when getting out of bed, Assessed \T\ reinforced patient's understanding of fall precautions, Provided non-skid footwear, Hourly rounding (assess needs \T\ fall precautionary measures) done. Abuse screen: Denies threats or abuse. Denies injuries from another. Nutritional screening: No deficits noted. Tuberculosis screening: No symptoms or risk factors identified. Primary Survey: 00:00 Reassessment Breathing: Spontaneous respiratory effort, equal unlabored respirations, ss12 breath sounds clear bilaterally, regular pattern with symmetrical chest rise and fall. Respiratory effort Spontaneous Breath sounds Clear Respiratory pattern Regular Chest inspection Symmetrical Circulation: No external hemorrhage noted. Regular and strong central pulse, skin warm/dry/normal color. Disability: Pupils Pupils are equal, round, reactive to light and accomodation. Alert. 00:30 NO uncontrolled hemorrhage observed. Breathing/Chest: Spontaneous respiratory effort, ss12 equal unlabored respirations, breath sounds clear bilaterally, regular pattern, symmetrical chest rise and fall. Circulation: No external hemorrhage present. Regular and strong central pulse, skin warm/dry/normal color. Disability Pupils are equal, round, reactive to light and accommodation. Client is alert. Exposure/Environment: A warming method has been applied: pt refused warm blanket. Secondary Survey: 02:37 HEENT: No deficits noted. Gastrointestinal: No deficits noted. : No deficits noted. tb4 Musculoskeletal: No signs and/or symptoms reported regarding the musculoskeletal system. Assessment: 12/20 23:44 General: Appears in no apparent distress. comfortable, Behavior is calm, cooperative. ss12 Pain: Complains of pain in hemotna on right side of the head Pain currently is 4 out of 10 on a pain scale. Quality of pain is described as aching, Pain began suddenly. Neuro: No deficits noted. Level of Consciousness is awake, alert, obeys commands, Oriented to person, place, time, situation. EENT: No deficits noted. Cardiovascular: No deficits noted. Capillary refill < 3 seconds Patient's skin is warm and dry. Respiratory: No deficits noted. Airway is patent Respiratory effort is even, unlabored, Respiratory pattern is regular, symmetrical. GI: No deficits noted. No signs and/or symptoms were reported involving the gastrointestinal system. : No deficits noted. No signs and/or symptoms were reported regarding the genitourinary system. Derm: No deficits noted. Skin is intact, Skin is dry, Skin is pink, warm \T\ dry. normal. Musculoskeletal: No deficits noted. No signs and/or symptoms reported regarding the musculoskeletal system. Injury Description: Head injury sustained to back of the head on right side. hemotoma noted is closed, did not have loss of consciousness. 12/21 00:30 Reassessment: Patient appears in no apparent distress at this time. Patient and/or 12 family updated on plan of care and expected duration. Pain level reassessed. Patient is alert, oriented x 3, equal unlabored respirations, skin warm/dry/pink. 01:58 Reassessment: Patient appears in no apparent distress at this time. Patient and/or ss12 family updated on plan of care and expected duration. Pain level reassessed. Patient is alert, oriented x 3, equal unlabored respirations, skin warm/dry/pink. Vital Signs: 12/20 23:44 BP 147 / 94; Pulse 69; Resp 18 S; Temp 98.1; Pulse Ox 98% on R/A; Weight 58.97 kg; ha1 Height 4 ft. 11 in. ; Pain 06/27; 12/21 00:17 BP 147 / 93; Pulse 70; Resp 16; Pulse Ox 100% on R/A; ss12 01:22 BP 146 / 86; Pulse 67; Resp 16 S; Pulse Ox 100% on R/A; ss12 12/20 23:44 Body Mass Index 26.26 (58.97 kg, 149.86 cm) [facility] 12/20 23:44 Pain Scale: Adult [facility] Max Coma Score: 12/20 23:25 Eye Response: spontaneous(4). Motor Response: obeys commands(6). Verbal Response: ss12 oriented(5). Total: 15. Trauma Score (Adult): 23:25 Eye Response: spontaneous(1); Verbal Response: oriented(1); Motor Response: obeys ss12 commands(2); Systolic BP: > 89 mm Hg(4); Respiratory Rate: 10 to 29 per min(4); Max Score: 15; Trauma Score: 12 ED Course: 23:33 Patient arrived in ED. gm2 23:47 Иван Vaughn DO is Attending Physician. tt7 23:48 Triage completed. ha1 12/21 00:26 Nidhi Terrell RN is Primary Nurse. ss12 00:30 Patient maintains SpO2 saturation greater than 95% on room air. ss12 01:00 CT Head C Spine In Process Unspecified. EDMS 01:25 Arm band placed on right wrist. ss12 01:25 No provider procedures requiring assistance completed. ss12 01:27 Thermoregulation: warm blanket given to patient. ss12 02:00 Patient has correct armband on for positive identification. Provided Education on: plan ss12 of care. 02:37 Patient did not have IV access during this emergency room visit. tb4 Administered Medications: No medications were administered Medication: 01:26 VIS not applicable for this client. ss12 Intake: 12/20 23:25 PO: 30ml (Water); Total: 30ml. ss12 Outcome: 12/21 01:51 Discharge ordered by MD. tt7 01:59 Discharged to home ambulatory, ss12 01:59 Condition: stable 01:59 Discharge instructions given to patient, family, Instructed on discharge instructions, follow up and referral plans. Demonstrated understanding of instructions, follow-up care, 02:00 Patient's length of stay was not longer than 2 hours. ss12 02:38 Patient left the ED. ha1 Signatures: Dispatcher [employer] EDCA Kathya Tinsley RN RN ha1 Britt Teran gm2 Louisa Mariscal RN RN tb4 Nidhi Terrell RN RN ss12 Иван Vaughn DO DO tt7 Corrections: (The following items were deleted from the chart) 00:21 12/20 23:44 Pulse 69bpm; Resp 18bpm; Spontaneous; Pulse Ox 98% RA; Temp 98.1F; 58.97 ha1 kg; Height 4 ft. 11 in.; BMI: 26.2; Pain 06/27, Adult; ha1 12/21 02:38 01:59 Patient did not have IV access during this emergency room visit. IV discontinued, tb4 ss12
--- NOTE | 2024-12-21 01:51 | EDPHYS ---
Physician Documentation [facility] Name: Fara Lott Age: 54 yrs Sex: Female : 1970 Arrival Date: 12/20/2024 Time: 23:27 Bed 16 Private MD: ED Physician Иван Vaughn HPI: 12/21 01:08 This 54 yrs old Female presents to ER via Ambulatory with complaints of head injury. tt7 01:08 Patient reports that she was having some alcoholic drinks and she lost her balance, tt7 fell, and hit the right side of her head on the ground. She did not have any loss of consciousness. She does not take any anticoagulants. She reports having a headache and took an aspirin prior to coming to the emergency department. She denies any other injury. [employer]: 02:37 unknown tb4 Historical: - Allergies: 12/20 23:48 Codeine; ha1 23:48 Compazine; ha1 23:48 Hydrocodone-Acetaminophen; ha1 23:48 Sulfa (Sulfonamide Antibiotics); ha1 - PMHx: 23:48 Asthma; Hypertension; ha1 - Immunization history:: Adult Immunizations up to date. - Infectious Disease History:: CDIFF, . - Immunization history: Last tetanus immunization: unknown. - Social history:: Smoking status: Patient reports the use of cigarette tobacco products, smokes one-half pack cigarettes per day. ROS: 12/21 01:09 Constitutional: negative for fever. Cardiovascular: negative for chest pain. tt7 Respiratory: negative for shortness of breath. Abdomen/GI: negative for abdominal pain, nausea, vomiting, diarrhea. MS/Extremity: negative for injury and deformity. Skin: negative for rash. Neuro: negative for focal weakness. Exam: 01:09 Constitutional: vital signs reviewed, well appearing. Head/Face: normocephalic, large tt7 hematoma to the right parietal scalp, no palpable skull fracture, no Benedict sign or raccoon eyes Eyes: no conjunctival injection, anicteric sclerae. ENT: mucus membranes moist. Neck: trachea midline, no JVD, no meningismus, no cervical point tenderness or step-off/deformity. Chest/axilla: normal chest wall appearance and motion, nontender, no crepitus. Cardiovascular: regular rate and rhythm, no lower extremity edema. Respiratory: normal respiratory effort, no accessory muscle use. Back: normal ROM. Skin: warm, dry, intact, normal turgor, normal color, no rash. MS/ Extremity: normal ROM of extremities, no gross deformities. Neuro: alert and oriented with appropriate mental status, normal speech, follows commands, no focal neurologic deficits. Psych: appropriate mood and affect. Vital Signs: 12/20 23:44 BP 147 / 94; Pulse 69; Resp 18 S; Temp 98.1; Pulse Ox 98% on R/A; Weight 58.97 kg; ha1 Height 4 ft. 11 in. ; Pain 4/; 12/21 00:17 BP 147 / 93; Pulse 70; Resp 16; Pulse Ox 100% on R/A; ss12 01:22 BP 146 / 86; Pulse 67; Resp 16 S; Pulse Ox 100% on R/A; ss12 12/20 23:44 Body Mass Index 26.26 (58.97 kg, 149.86 cm) [facility] 12/20 23:44 Pain Scale: Adult [facility] Max Coma Score: 12/20 23:25 Eye Response: spontaneous(4). Motor Response: obeys commands(6). Verbal Response: ss12 oriented(5). Total: 15. Trauma Score (Adult): 23:25 Eye Response: spontaneous(1); Verbal Response: oriented(1); Motor Response: obeys ss12 commands(2); Systolic BP: > 89 mm Hg(4); Respiratory Rate: 10 to 29 per min(4); Newman Score: 15; Trauma Score: 12 MDM: 23:47 Medical Screening Exam initiated tt7 12/21 01:11 Differential diagnosis: closed head injury, contusion, fracture, ICH. Data reviewed: tt7 vital signs, nurses notes, radiologic studies. Counseling: I had a detailed discussion with the patient and/or guardian regarding the historical points, exam findings, and any diagnostic results supporting the discharge/admit diagnosis, radiology results, the need for outpatient follow up, to return to the emergency department if symptoms worsen or persist or if there are any questions or concerns that arise at home. 01:51 ED course: I independently interpreted the patient's CT imaging of the head without tt7 contrast, there is no acute intracranial abnormality, there is a right parieto-occipital soft tissue hematoma noted, after completion of the patient's emergency department evaluation, I do not suspect a life-threatening or disabling process. Patient is medically stable and not in need of emergent medical intervention. I had a detailed discussion with the patient regarding the historical points, exam findings, emergency department evaluation, diagnostic results, and the discharge diagnosis. I instructed the patient on outpatient management of their condition. I discussed the need for outpatient follow-up with a primary care physician. I informed the patient on return precautions, including the need to return to the ED if symptoms do not improve, worsen, or if there are any questions or concerns that arise at home. The patient was discharged in stable condition. 12/20 23:57 Order name: CT Head C Spine tt7 Administered Medications: No medications were administered Disposition: 01:52 Co-signature as Attending Physician, Иван Vaughn DO. tt7 Disposition Summary: 12/21/24 01:51 Discharge Ordered Notes: Location: Home tt7 Problem: new tt7 Symptoms: have improved tt7 Condition: Stable tt7 Diagnosis - Unspecified injury of head, initial encounter tt7 Followup: tt7 - With: Emergency Department - When: As needed - Reason: Followup: tt7 - With: Private Physician - When: 2 - 3 days - Reason: Recheck today's complaints, Re-evaluation by your physician Discharge Instructions: - Discharge Summary Sheet tt7 - Head Injury, Adult, [id number] tt7 Forms: - Medication Reconciliation Form tt7 - Antibiotic Education tt7 - Prescription Opioid Use tt7 - Patient Portal Instructions tt7 - Leadership Thank You Letter tt7 Signatures: Dispatcher [employer] Kathya Carver RN RN ha1 Nidhi Terrell RN RN ss12 Иван Vaughn DO DO tt7 Corrections: (The following items were deleted from the chart) 12/20 23:57 23:57 Head C Spine MPR Wo Con+CT.RAD.BRZ ordered. EDRI HYACINTH
[2024-12-21 03:28] VITALS: TEMP 98.1
[2024-12-21 03:29] VITALS: O2SAT 100
[2024-12-21 03:31] VITALS: BP 146/86
== END 2024-12-21 02:38 | disposition home or self-care (01) ==
LOC: ER 23:27
DX: S00.03XA Contusion of scalp, initial encounter (principal); W18.30XA Fall on same level, unspecified, initial encounter; F17.210 Nicotine dependence, cigarettes, uncomplicated
CPT/HCPCS: 70450; 72125; 99283